=== PATIENT | male | born 1955 | race Caucasian/White ===

== ENCOUNTER 2019-09-02 10:08 | Outpatient (CLI) | payer MEDICARE, OTHER ==
[2019-09-02 12:26] LABS: BASOPHILS % (AUTO) 0.6 %; EOSINOPHILS # (AUTO) 0.2 10^3/uL (0.0-0.7); EOSINOPHILS % (AUTO) 3.6 %; HGB - HEMOGLOBIN 13.6 g/dL (14.0-18.0); LYMPHOCYTES # (AUTO) 1.5 10^3/uL (1.5-3.5); LYMPHOCYTES % (AUTO) 22.1 %; MEAN CORPUSCULAR HGB CONC 30.7 g/dL (32.0-36.0); MEAN CORPUSCULAR VOLUME 91.3 fL (80.0-94.0); MONOCYTES # (AUTO) 0.7 10^3/uL (0.0-1.0); MONOCYTES % (AUTO) 9.6 %; NEUTROPHILS # (AUTO) 4.3 10^3/uL (1.5-6.6); NEUTROPHILS % (AUTO) 63.7 %; PLT - PLATELET COUNT 273 10^3/uL (130-450); RED BLOOD COUNT 4.85 10^6/uL (4.70-6.10); RED CELL DISTRIBUTION WIDTH 14.1 % (12.0-15.0); WHITE BLOOD COUNT 6.8 x10^3/uL (4.8-10.8)
[2019-09-02 13:12] LABS: ALBUMIN 4.9 g/dL (3.2-5.5); ALBUMIN/GLOBULIN RATIO 1.8 (1.0-2.2); ALKALINE PHOSPHATASE 63 IU/L (42-121); ALT ALANINE AMINOTRANSFERASE 28 IU/L (10-60); AST ASPARTATE AMINOTRANSFERASE 28 IU/L (10-42); BILIRUBIN,TOTAL 0.7 mg/dL (0.2-1.0); BUN - BLOOD UREA NITROGEN 10 mg/dL (6-20); CALCIUM 9.8 mg/dL (8.5-10.3); CARBON DIOXIDE - CO2 30 mmol/L (21-32); CHLORIDE 103 mmol/L (101-111); CHOL/HDL RATIO 3.8 (<5.0); CHOLESTEROL 185 mg/dL; CREATININE 0.8 mg/dL (0.6-1.2); GFR - MDRD 97 (>89); GLUCOSE 117 mg/dL (70-100); HDL CHOLESTEROL 49 mg/dL; LDL CHOLESTEROL,CALCULATED 117 mg/dL; LDL/HDL RATIO 2.4 (<3.6); SODIUM 142 mmol/L (135-145); TOTAL PROTEIN 7.7 g/dL (6.7-8.2); VLDL CHOLESTEROL 19 mg/dL
== END 2019-09-02 23:59 | disposition home or self-care (01) ==
LOC: LAB.WCP 10:08
PROVIDERS: ATTEND Physician Assistant
DX: I10 Essential (primary) hypertension (principal); E78.5 Hyperlipidemia, unspecified; M10.9 Gout, unspecified
CPT/HCPCS: 36415; 80053; 80061; 83721; 84550; 85025

== ENCOUNTER 2020-07-15 11:33 | Outpatient (CLI) | payer MEDICARE, OTHER ==
--- NOTE | 2020-07-15 12:31 | XRAY Report ---
PROCEDURE: Knee 2 View LT INDICATIONS: ARTHRITIS,LT KNEE TECHNIQUE: 2 views of the knee(s) were acquired. COMPARISON: None. FINDINGS: Bones: No fractures or dislocations. No suspicious bony lesions. Moderate tricompartmental knee bulmaro int osteoarthritis is present at the lateral compartment and patellofemoral joint but moderately shahzad re such degeneration is seen at the medial compartment. Soft tissues: No joint effusion. No suspicious soft tissue calcifications. IMPRESSION: Tricompartmental degenerative knee joint osteoarthritis most pronounced at the medial co mpartment without effusion or loose body, or trauma found. Reviewed by: Sanjay Segal MD on 07/15/2020 12:30 PM PDT Approved by: Sanjay Segal MD on 07/15/2020 12:30 PM PDT Station ID: [id number]
== END 2020-07-15 11:34 | disposition home or self-care (01) ==
LOC: DI 11:33
PROVIDERS: ATTEND Physician Assistant
DX: M17.12 Unilateral primary osteoarthritis, left knee (principal)

== ENCOUNTER 2020-12-25 08:00 | Outpatient (CLI) | payer MEDICARE, OTHER ==
[2020-12-25 11:46] LABS: BASOPHILS % (AUTO) 0.5 %; EOSINOPHILS # (AUTO) 0.2 10^3/uL (0.0-0.7); EOSINOPHILS % (AUTO) 2.1 %; HGB - HEMOGLOBIN 13.6 g/dL (14.0-18.0); LYMPHOCYTES # (AUTO) 1.7 10^3/uL (1.5-3.5); LYMPHOCYTES % (AUTO) 23.2 %; MEAN CORPUSCULAR HEMOGLOBIN 29.3 pg (27.0-31.0); MEAN CORPUSCULAR HGB CONC 31.6 g/dL (32.0-36.0); MEAN CORPUSCULAR VOLUME 92.7 fL (80.0-94.0); MEAN PLATELET VOLUME 10.8 fL (7.4-11.4); MONOCYTES # (AUTO) 0.8 10^3/uL (0.0-1.0); MONOCYTES % (AUTO) 10.9 %; NEUTROPHILS # (AUTO) 4.7 10^3/uL (1.5-6.6); PLT - PLATELET COUNT 270 10^3/uL (130-450); RED BLOOD COUNT 4.64 10^6/uL (4.70-6.10); RED CELL DISTRIBUTION WIDTH 13.5 % (12.0-15.0); WHITE BLOOD COUNT 7.5 x10^3/uL (4.8-10.8)
[2020-12-25 12:35] LABS: ALBUMIN 4.6 g/dL (3.2-5.5); ALBUMIN/GLOBULIN RATIO 1.8 (1.0-2.2); ALKALINE PHOSPHATASE 68 IU/L (42-121); ALT ALANINE AMINOTRANSFERASE 29 IU/L (10-60); AST ASPARTATE AMINOTRANSFERASE 33 IU/L (10-42); BUN - BLOOD UREA NITROGEN 14 mg/dL (6-20); CALCIUM 9.8 mg/dL (8.5-10.3); CARBON DIOXIDE - CO2 28 mmol/L (21-32); CHLORIDE 100 mmol/L (101-111); CHOL/HDL RATIO 3.9 (<5.0); CHOLESTEROL 165 mg/dL; CREATININE 0.8 mg/dL (0.6-1.2); GLUCOSE 102 mg/dL (70-100); HDL CHOLESTEROL 42 mg/dL; LDL CHOLESTEROL,CALCULATED 96 mg/dL; LDL/HDL RATIO 2.3 (<3.6); TOTAL PROTEIN 7.2 g/dL (6.7-8.2); URIC ACID 3.5 mg/dL (2.6-7.2); VLDL CHOLESTEROL 27 mg/dL
== END 2020-12-25 23:59 | disposition home or self-care (01) ==
LOC: LAB.WCP 08:00
PROVIDERS: ATTEND Physician Assistant Medical
DX: E78.5 Hyperlipidemia, unspecified (principal); Z12.5 Encounter for screening for malignant neoplasm of prostate; M10.9 Gout, unspecified
CPT/HCPCS: 36415; 80053; 80061; 84550; 85025; G0103; 83721; 84153

== ENCOUNTER 2021-08-03 08:28 | Outpatient (CLI) | payer MEDICARE, OTHER ==
[2021-08-03 12:15] LABS: BASOPHILS % (AUTO) 0.5 %; EOSINOPHILS # (AUTO) 0.2 10^3/uL (0.0-0.7); HCT - HEMATOCRIT 45.5 % (42.0-52.0); HGB - HEMOGLOBIN 14.5 g/dL (14.0-18.0); LYMPHOCYTES # (AUTO) 1.6 10^3/uL (1.5-3.5); LYMPHOCYTES % (AUTO) 24.5 %; MEAN CORPUSCULAR HEMOGLOBIN 30.6 pg (27.0-31.0); MEAN CORPUSCULAR HGB CONC 31.9 g/dL (32.0-36.0); MEAN PLATELET VOLUME 11.1 fL (7.4-11.4); MONOCYTES # (AUTO) 0.6 10^3/uL (0.0-1.0); MONOCYTES % (AUTO) 9.3 %; NEUTROPHILS % (AUTO) 62.4 %; PLT - PLATELET COUNT 282 10^3/uL (130-450); RED BLOOD COUNT 4.74 10^6/uL (4.70-6.10); RED CELL DISTRIBUTION WIDTH 13.7 % (12.0-15.0); WHITE BLOOD COUNT 6.4 x10^3/uL (4.8-10.8)
[2021-08-03 12:57] LABS: ALBUMIN 4.9 g/dL (3.2-5.5); ALBUMIN/GLOBULIN RATIO 1.7 (1.0-2.2); ALKALINE PHOSPHATASE 59 IU/L (42-121); ALT ALANINE AMINOTRANSFERASE 34 IU/L (10-60); AST ASPARTATE AMINOTRANSFERASE 31 IU/L (10-42); BILIRUBIN,TOTAL 0.9 mg/dL (0.2-1.0); BUN - BLOOD UREA NITROGEN 15 mg/dL (6-20); CALCIUM 9.9 mg/dL (8.5-10.3); CARBON DIOXIDE - CO2 28 mmol/L (21-32); CHLORIDE 106 mmol/L (101-111); CHOL/HDL RATIO 3.8 (<5.0); CHOLESTEROL 168 mg/dL; CREATININE 0.7 mg/dL (0.6-1.2); GFR - MDRD 112 (>89); GLUCOSE 102 mg/dL (70-100); HDL CHOLESTEROL 44 mg/dL; LDL CHOLESTEROL,CALCULATED 109 mg/dL; LDL/HDL RATIO 2.5 (<3.6); POTASSIUM 4.4 mmol/L (3.5-5.0); SODIUM 144 mmol/L (135-145); TOTAL PROTEIN 7.8 g/dL (6.7-8.2); TRIGLYCERIDES 76 mg/dL; URIC ACID 4.6 mg/dL (2.6-7.2); VLDL CHOLESTEROL 15 mg/dL
== END 2021-08-03 23:59 | disposition home or self-care (01) ==
LOC: LAB.WCP 08:28
PROVIDERS: ATTEND Physician Assistant Medical
DX: E78.5 Hyperlipidemia, unspecified (principal); M10.9 Gout, unspecified; I10 Essential (primary) hypertension
CPT/HCPCS: 36415; 80053; 80061; 83721; 84550; 85025

== ENCOUNTER 2022-02-14 17:11 | Outpatient (CLI) | payer MEDICARE, OTHER ==
--- NOTE | 2022-02-15 12:03 | Ultrasound Report ---
PROCEDURE: Testicle INDICATIONS: RIGHT TESTICULAR PAIN TECHNIQUE: Real-time scanning was performed of the scrotum and testicles, with image documentation. Color and p ulse Doppler interrogation was performed of both testicles. COMPARISON: None. FINDINGS: Right: Testicle is normal in size at 2.5 x 3.4 x 4.3 cm, and homogenous in echotexture. Epididymis is normal in overall size and morphology. No hydrocele or varicoceles. Overlying scrotal skin is no rmal in thickness. Left: Testicle is normal in size at 2.6 x 2.7 x 4.5 cm, and homogeneous in echotexture. Epididymis is normal in overall size and morphology. No hydrocele. Small left varicocele. Overlying scrotal skin is normal in thickness. Doppler: Color and pulse Doppler demonstrate normal and symmetric arterial flow in both testicles. Miscellaneous: Incidental fat-containing reducible right inguinal hernia with fascial defect measurin g 1.4 cm. IMPRESSION: No testicular mass, hydrocele, or varicocele on the right. Small fat-containing right inguinal hernia. Mild left varicocele. Reviewed by: Dipesh Hernández MD on 02/15/2022 12:02 PM PDT Approved by: Dipesh Hernández MD on 02/15/2022 12:02 PM PDT Station ID: [id number]
== END 2022-02-14 17:12 | disposition home or self-care (01) ==
LOC: DI 17:11
PROVIDERS: ATTEND Physician Assistant Medical
DX: I86.1 Scrotal varices (principal); K40.90 Unilateral inguinal hernia, without obstruction or gangrene, not specified as recurrent

== ENCOUNTER 2022-02-25 08:00 | Outpatient (CLI) | payer MEDICARE, OTHER | END 2022-02-25 23:59 | disposition home or self-care (01) | LOC: LAB.N 08:00 | PROVIDERS: ATTEND Physician Assistant | DX: J06.9 Acute upper respiratory infection, unspecified (principal); Z20.822 Contact with and (suspected) exposure to COVID-19 ==

== ENCOUNTER 2022-08-08 07:33 | Outpatient (CLI) | payer MEDICARE, OTHER ==
[2022-08-08 12:54] LABS: BASOPHILS % (AUTO) 0.4 %; EOSINOPHILS # (AUTO) 0.2 10^3/uL (0.0-0.7); EOSINOPHILS % (AUTO) 2.2 %; HGB - HEMOGLOBIN 14.6 g/dL (14.0-18.0); LYMPHOCYTES # (AUTO) 1.7 10^3/uL (1.5-3.5); LYMPHOCYTES % (AUTO) 23.7 %; MEAN CORPUSCULAR HEMOGLOBIN 30.9 pg (27.0-31.0); MEAN CORPUSCULAR HGB CONC 33.2 g/dL (32.0-36.0); MEAN PLATELET VOLUME 11.3 fL (7.4-11.4); MONOCYTES # (AUTO) 0.8 10^3/uL (0.0-1.0); MONOCYTES % (AUTO) 10.5 %; NEUTROPHILS # (AUTO) 4.6 10^3/uL (1.5-6.6); NEUTROPHILS % (AUTO) 62.9 %; PLT - PLATELET COUNT 248 10^3/uL (130-450); RED BLOOD COUNT 4.73 10^6/uL (4.70-6.10); RED CELL DISTRIBUTION WIDTH 13.4 % (12.0-15.0); WHITE BLOOD COUNT 7.3 x10^3/uL (4.8-10.8)
[2022-08-08 13:12] LABS: ALBUMIN 4.6 g/dL (3.2-5.5); ALBUMIN/GLOBULIN RATIO 1.5 (1.0-2.2); ALKALINE PHOSPHATASE 51 IU/L (42-121); ALT ALANINE AMINOTRANSFERASE 42 IU/L (10-60); AST ASPARTATE AMINOTRANSFERASE 33 IU/L (10-42); BUN - BLOOD UREA NITROGEN 16 mg/dL (6-20); CALCIUM 9.6 mg/dL (8.5-10.3); CARBON DIOXIDE - CO2 28 mmol/L (21-32); CHLORIDE 104 mmol/L (101-111); CHOL/HDL RATIO 3.9 (<5.0); CHOLESTEROL 161 mg/dL; CREATININE 0.8 mg/dL (0.6-1.2); GFR - MDRD 96 (>89); GLUCOSE 109 mg/dL (70-100); HDL CHOLESTEROL 41 mg/dL; LDL CHOLESTEROL,CALCULATED 110 mg/dL; LDL/HDL RATIO 2.7 (<3.6); POTASSIUM 4.2 mmol/L (3.5-5.0); SODIUM 139 mmol/L (135-145); TOTAL PROTEIN 7.6 g/dL (6.7-8.2); TRIGLYCERIDES 51 mg/dL; VLDL CHOLESTEROL 10 mg/dL
[2022-08-08 13:17] LABS: THYROID STIMULATING HORMONE 2.18 uIU/mL (0.34-5.60)
== END 2022-08-08 07:34 | disposition home or self-care (01) ==
LOC: LAB.N 07:33
PROVIDERS: ATTEND Physician Assistant Medical
DX: I10 Essential (primary) hypertension (principal); E78.5 Hyperlipidemia, unspecified; Z12.5 Encounter for screening for malignant neoplasm of prostate; Z79.899 Other long term (current) drug therapy
CPT/HCPCS: 36415; 80053; 80061; 84443; 85025; G0103; 83721; 84153

== ENCOUNTER 2023-06-05 08:13 | Outpatient (CLI) | payer MEDICARE, OTHER ==
[2023-06-05 13:43] LABS: CALCIUM 9.5 mg/dL (8.5-10.3); CREATININE 0.8 mg/dL (0.6-1.2); POTASSIUM 4.5 mmol/L (3.5-5.0)
[2023-06-05 13:57] LABS: ESTIMATED AVERAGE GLUCOSE 120 mg/dL (70-100); HEMOGLOBIN A1c% 5.8 % (4.27-6.07)
== END 2023-06-05 08:14 | disposition home or self-care (01) ==
LOC: LAB.N 08:13
PROVIDERS: ATTEND Physician Assistant Medical
DX: I10 Essential (primary) hypertension (principal); R73.9 Hyperglycemia, unspecified
CPT/HCPCS: 36415; 80048; 83036

== ENCOUNTER 2023-08-01 07:42 | Outpatient (CLI) | payer MEDICARE, OTHER ==
[2023-08-01 12:07] LABS: BASOPHILS % (AUTO) 0.3 %; EOSINOPHILS # (AUTO) 0.3 10^3/uL (0.0-0.7); HCT - HEMATOCRIT 45.1 % (42.0-52.0); LYMPHOCYTES # (AUTO) 1.8 10^3/uL (1.5-3.5); MEAN CORPUSCULAR HEMOGLOBIN 30.9 pg (27.0-31.0); MEAN CORPUSCULAR HGB CONC 33.3 g/dL (32.0-36.0); MEAN CORPUSCULAR VOLUME 92.8 fL (80.0-94.0); MEAN PLATELET VOLUME 10.9 fL (7.4-11.4); MONOCYTES # (AUTO) 0.8 10^3/uL (0.0-1.0); MONOCYTES % (AUTO) 9.1 %; NEUTROPHILS % (AUTO) 67.2 %; PLT - PLATELET COUNT 269 10^3/uL (130-450); RED BLOOD COUNT 4.86 10^6/uL (4.70-6.10); RED CELL DISTRIBUTION WIDTH 13.3 % (12.0-15.0); WHITE BLOOD COUNT 8.9 x10^3/uL (4.8-10.8)
[2023-08-01 13:04] LABS: ALBUMIN 4.6 g/dL (3.2-5.5); ALBUMIN/GLOBULIN RATIO 1.8 (1.0-2.2); ALKALINE PHOSPHATASE 52 IU/L (42-121); ALT ALANINE AMINOTRANSFERASE 42 IU/L (10-60); AST ASPARTATE AMINOTRANSFERASE 30 IU/L (10-42); BILIRUBIN,TOTAL 0.8 mg/dL (0.2-1.0); BUN - BLOOD UREA NITROGEN 12 mg/dL (6-20); CARBON DIOXIDE - CO2 31 mmol/L (21-32); CHLORIDE 103 mmol/L (101-111); CHOL/HDL RATIO 3.7 (<5.0); CHOLESTEROL 163 mg/dL; CREATININE 0.8 mg/dL (0.6-1.3); GFR - MDRD 96 (>89); GLUCOSE 105 mg/dL (74-104); HDL CHOLESTEROL 44 mg/dL; LDL CHOLESTEROL,CALCULATED 98 mg/dL; LDL/HDL RATIO 2.2 (<3.6); POTASSIUM 3.8 mmol/L (3.5-4.5); SODIUM 139 mmol/L (135-145); TOTAL PROTEIN 7.1 g/dL (6.4-8.9); TRIGLYCERIDES 104 mg/dL (48-352); URIC ACID 4.2 mg/dL (4.4-7.6); VLDL CHOLESTEROL 21 mg/dL
== END 2023-08-01 07:43 | disposition home or self-care (01) ==
LOC: LAB.N 07:42
PROVIDERS: ATTEND Physician Assistant Medical
DX: E78.5 Hyperlipidemia, unspecified (principal); Z12.5 Encounter for screening for malignant neoplasm of prostate; M10.9 Gout, unspecified
CPT/HCPCS: 36415; 80053; 80061; 84550; 85025; G0103; 83721; 84153

== ENCOUNTER 2023-10-06 08:27 | Day surgery (SDC) | payer MEDICARE, OTHER ==
[2023-10-06] MEDS ORDERED: LACTATED RINGERS 1,000 ML IV ONE ×2 (08:55→11:02)
--- NOTE | 2023-10-06 09:00 | ANESTHESIA ---
Pre-Anesthesia VS, & Labs - Diagnosis screening - Procedure colonoscopy Vital Signs: Temp Pulse Resp BP Pulse Ox O2 Flow Rate 36.6 C 69 16 157/100 H 97 10/06/23 08:51 10/06/23 08:51 10/06/23 08:51 10/06/23 08:51 10/06/23 08:51 Height: 5 ft 11 in Weight (kg): 95.7 kg Body Mass Index: 29.4 BMI Classification: Overweight - NPO >8 hours - Lab Results Lab results reviewed: Yes Home Medications and Allergies Home Medications: Ambulatory Orders allopurinoL [Allopurinol] 300 mg PO DAILY 10/06/23 allopurinoL [Allopurinol] 300 mg PO DAILY 10/06/23 Allergies/Adverse Reactions: Allergies Allergy/AdvReac Type Severity Reaction Status Date / Time No Known Drug Allergies Allergy Verified 08/15/23 09:19 Anes History & Medical History - Anesthetic History Anesthesia Complications: reports: No previous complications - Medical History Cardiovascular: reports: Hypertension, High cholesterol Pulmonary: reports: None Gastrointestinal: reports: None Urinary: reports: None Musculoskeletal: reports: Osteoarthritis, Gout Endocrine/Autoimmune: reports: None Skin: reports: None Smoking Status: Never smoker Psychosocial: reports: Alcohol - Surgical History General: reports: Colonoscopy Urologic: reports: Testicular surgery Orthopedic: reports: Knee replacement Exam General: Alert, Oriented x3, Cooperative Dental: WNL Mouth Openin Fingerbreadth Neck Mobility: Normal Mallampati classification: II Thyromental Distance: 4-6 cm Respiratory: Lungs clear Cardiovascular: Regular rate Plan Anesthesia Type: Total IV Consent for Procedure(s) Verified and Reviewed: Yes Code Status: Attempt Resuscitation ASA classification: 2-Mild systemic disease Is this case an emergency?: No
[2023-10-06] MEDS ORDERED: PROPOFOL 500 MG/50 ML 500 MG/50 ML VIAL ONE (10:51)
[2023-10-06] MEDS ORDERED: GLYCOPYRROLATE 1 MG/5 ML VIAL ONE (10:55)
[2023-10-06 11:33] VITALS: BP 119/74; O2SAT 99
--- NOTE | 2023-10-06 13:56 | ANESTHESIA POST OP EVALUATION ---
Anesthesia Post Eval - Post Anesthesia Eval Vitals: Last Vital Signs Temp 36.5 C 10/06/23 11:02 Pulse 70 10/06/23 11:28 Resp 16 10/06/23 11:28 BP 119/74 10/06/23 11:28 Pulse Ox 99 10/06/23 11:28 O2 Flow Rate CV Function Including HR & BP: Stable Pain Control: Satisfactory Nausea & Vomiting: Negative Mental Status: Baseline Respiratory Status: Airway Patent Hydration Status: Satisfactory Anesthesia Complications: None
== END 2023-10-06 08:28 | disposition home or self-care (01) ==
LOC: SDS 08:27
PROVIDERS: ATTEND Surgery
PROC: 0DBK8ZZ Excision of Ascending Colon, Via Natural or Artificial Opening Endoscopic (ICD-10-PCS; principal; 2023-10-06 09:45)
DX: Z12.11 Encounter for screening for malignant neoplasm of colon (principal); D12.2 Benign neoplasm of ascending colon; K57.30 Diverticulosis of large intestine without perforation or abscess without bleeding
CPT/HCPCS: 45380; J7120

== ENCOUNTER 2024-02-20 15:47 | Outpatient (CLI) | payer MEDICARE, OTHER ==
--- NOTE | 2024-02-21 10:13 | MRI Report ---
PROCEDURE: Shoulder RT WO INDICATIONS: R ROTATOR CUFF SYN TECHNIQUE: Noncontrast oblique coronal T2 fast spin echo with fat saturation, oblique sagittal T1 spin echo and T2 fast spin echo with fat saturation, axial T1 spin echo and T2 fast spin echo with fat saturation t hrough the shoulder. COMPARISON: X-ray right shoulder, 08/15/2023. FINDINGS: Image quality: Excellent. Rotator cuff: There is full-thickness tear of the subscapularis tendon. There is tendon retraction. Mild subscapularis muscle atrophy. There is severe supraspinatus tendinosis from the musculotendinous junction to the footprint. There i s at least high-grade partial-thickness tear of the anterior fibers of the supraspinatus tendon. There is moderate tendinosis of the infraspinatus tendon with low-grade partial-thickness tear. Bones and bursae: No bone marrow contusions or fractures. Moderate acromioclavicular and glenohumera l joint degeneration. The acromion demonstrates conventional anatomy, without an os acromiale. Moder ate to large glenohumeral joint effusion. Capsule and soft tissues: There is degenerative tear of the anterior inferior labrum. There is mild more diffuse degenerative labral fraying. The glenohumeral ligaments appear intact. Severe tendinosis of the intra-articular segment of the long head of the biceps tendon, most pronounc ed in the intra-articular segment. The rotator interval appears irregular with fibrosis. The coracohumeral ligament is thickened. IMPRESSION: 1. Full-thickness tear of the subscapularis tendon with tendon retraction and mild muscle atrophy. 2. At least high-grade partial-thickness tear of the anterior fibers of the supraspinatus tendon with severe tendinosis from the musculotendinous junction to the footprint. 3. Moderate infraspinatus tendinosis with low-grade partial-thickness tear. 4. Severe tendinosis of the long head of the biceps. 5. Degenerative tear of the anterior inferior labrum. 6. Moderate acromioclavicular and glenohumeral arthrosis. 7. [id number] glenohumeral joint effusion. Reviewed by: Leobardo Segal MD on 02/21/2024 10:12 AM PDT Approved by: Leobardo Segal MD on 02/21/2024 10:12 AM PDT Station ID: [id number]
== END 2024-02-20 15:48 | disposition home or self-care (01) ==
LOC: DI 15:47
PROVIDERS: ATTEND Physician Assistant Surgical
DX: M75.121 Complete rotator cuff tear or rupture of right shoulder, not specified as traumatic (principal); M62.511 Muscle wasting and atrophy, not elsewhere classified, right shoulder; M67.813 Other specified disorders of tendon, right shoulder; S43.491A Other sprain of right shoulder joint, initial encounter; M19.011 Primary osteoarthritis, right shoulder; M25.411 Effusion, right shoulder

== ENCOUNTER 2024-03-27 09:30 | Day surgery (SDC) | payer MEDICARE, OTHER ==
[~2024-03-27 09:30] MED LIST: EPINEPHrine 1 MG/ML AMP ONE; ceFAZolin 2 GM VIAL ONE
[2024-03-27] MEDS: LACTATED RINGERS 1,000 ML IV ONE ×2 (09:40→16:11)
[2024-03-27] MEDS: ACETAMINOPHEN 500 MG TABLET PO ONE (09:50)
[2024-03-27] MEDS: CELECOXIB 100 MG CAPSULE PO ONE (09:50)
[2024-03-27] MEDS ORDERED: BUPIVACAINE 0.5%-EPI 1:200000 PF 30 ML VIAL ONE (10:12)
[2024-03-27] MEDS ORDERED: BUPIVACAINE 0.5% PF 10 ML VIAL ONE (10:14)
[2024-03-27] MEDS ORDERED: fentaNYL 100 MCG/2 ML VIAL ONE ×2 (10:16→12:27)
[2024-03-27] MEDS ORDERED: PROPOFOL 200 MG/20 ML VIAL IVP ONE (10:16)
[2024-03-27] MEDS ORDERED: MIDAZOLAM 2 MG/2 ML VIAL ONE (10:16)
[2024-03-27] MEDS ORDERED: LIDOCAINE-PF 2% 10 ML AMP SUBQ ONE (10:16)
[2024-03-27] MEDS ORDERED: ROPIVACAINE 0.5% PF 20 ML VIAL ONE (10:17)
--- NOTE | 2024-03-27 10:19 | ANESTHESIA ---
Pre-Anesthesia VS, & Labs - Diagnosis right rotator cuff tear - Procedure Arthroscopy right shoulder with repair of rotator cuff/biceps Vital Signs: Temp Pulse Resp BP Pulse Ox O2 Flow Rate 36.7 C 63 18 146/94 H 97 03/27/24 09:48 03/27/24 09:48 03/27/24 09:48 03/27/24 09:48 03/27/24 09:48 Height: 5 ft 10 in Weight (kg): 95.9 kg Body Mass Index: 30.3 BMI Classification: Obese - NPO >8 hours Home Medications and Allergies Home Medications: Ambulatory Orders Sildenafil Citrate 50 mg PO ONCE PRN 03/22/24 Losartan Potassium 100 mg PO DAILY 10/06/23 Pravastatin [Pravachol] 80 mg PO DAILY 10/06/23 allopurinoL [Allopurinol] 300 mg PO DAILY 10/06/23 amLODIPine [Norvasc] 5 mg PO DAILY 10/06/23 Sildenafil Citrate 50 mg PO ONCE PRN 03/22/24 Allergies/Adverse Reactions: Allergies Allergy/AdvReac Type Severity Reaction Status Date / Time No Known Drug Allergies Allergy Verified 08/15/23 09:19 Anes History & Medical History - Anesthetic History Anesthesia Complications: reports: No previous complications - Medical History Cardiovascular: reports: Hypertension, High cholesterol Pulmonary: reports: None Gastrointestinal: reports: None Urinary: reports: None Neuro: reports: None Musculoskeletal: reports: Osteoarthritis, Gout Endocrine/Autoimmune: reports: None Skin: reports: Other Smoking Status: Never smoker Psychosocial: reports: No issues indicated History of Cancer?: No - Surgical History General: reports: Colonoscopy Urologic: reports: Testicular surgery Orthopedic: reports: Knee replacement Dermatologic: reports: Skin cancer surgery Exam General: Alert, Oriented x3, Cooperative, No acute distress Dental: WNL Mouth Openin Fingerbreadth Neck Mobility: Normal Mallampati classification: II Thyromental Distance: 4-6 cm Mental/Cognitive Status: Alert/Oriented X3, Normal for patient Plan Anesthesia Type: General, Interscalene Block (right) Consent for Procedure(s) Verified and Reviewed: Yes Code Status: Attempt Resuscitation ASA classification: 2-Mild systemic disease Is this case an emergency?: No
[2024-03-27] MEDS ORDERED: ROCURONIUM 50 MG/5 ML VIAL ONE (10:22)
[2024-03-27] MEDS ORDERED: MORPHINE 2 MG/ML CARPUJECT IVP PRN (10:37)
[2024-03-27] MEDS ORDERED: fentaNYL 100 MCG/2 ML VIAL IVP PRN (10:37)
[2024-03-27] MEDS ORDERED: ATROPINE ABBOJECT 1 MG/10 ML SYRINGE IVP PRN (10:37)
[2024-03-27] MEDS ORDERED: HYDROmorphone 0.5 MG/0.5 ML SYRINGE IVP PRN (10:37)
[2024-03-27] MEDS ORDERED: NALOXONE 0.4 MG/ML VIAL IVP PRN (10:37)
[2024-03-27] MEDS ORDERED: ONDANSETRON 4 MG/2 ML VIAL IVP PRN ×2 (10:37→16:10)
[2024-03-27] MEDS: EPINEPHrine 1 MG/ML AMP IR ONE (10:42)
[2024-03-27] MEDS ORDERED: SODIUM CHLORIDE 0.9% 10 ML VIAL IVP ONE ×3 (10:54→14:34)
[2024-03-27] MEDS ORDERED: PHENYLEPHRINE HCL 0.5 MG/5 ML AMPULE ONE ×2 (10:54→11:32)
[2024-03-27] MEDS ORDERED: ePHEDrine 50 MG/ML VIAL IVP ONE ×2 (10:54→14:34)
[2024-03-27] MEDS ORDERED: LACTATED RINGERS 1,000 ML IV SCH (11:00)
[2024-03-27] MEDS ORDERED: GLYCOPYRROLATE 1 MG/5 ML VIAL ONE (11:20)
[2024-03-27] MEDS ORDERED: ONDANSETRON 4 MG/2 ML VIAL ONE (11:34)
[2024-03-27] MEDS ORDERED: HYDROmorphone 1 MG/ML CARPUJECT ONE (13:48)
[2024-03-27] MEDS ORDERED: ceFAZolin 1 GM VIAL ONE (14:23)
[2024-03-27] MEDS ORDERED: SEVOFLURANE 250 ML LIQUID INH ONE (15:22)
[2024-03-27] MEDS ORDERED: VANCOMYCIN 1 GM VIAL ONE (15:36)
--- NOTE | 2024-03-27 15:56 | OPERATIVE REPORT ---
Operative Report - General Procedure Date: 03/27/24 Planned Procedure: Rotator cuff repair and biceps tenodesis right shoulder with arthroscopy Pre-Op Diagnosis: Rotator cuff tear and biceps tendinosis right shoulder Procedure Performed: Arthroscopy right shoulder, arthroscopic biceps tenodesis and mini open repair rotator cuff right shoulder Post Op Diagnosis: Same as preoperative diagnosis - Procedure Note Primary Surgeon: Kristofer Bejarano MD Secondary Surgeon: Ashley DAVIS Anesthesia Provider: Macho Irene CRNA Anesthesia Technique: General ET tube, Regional block Indications: This is a 69-year-old gentleman who has been very active throughout his life physically. 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 He enjoys kayaking and other physical activities with his arms.. His dominant arm is his right. He is very tender over the greater tuberosity and biceps tendon preoperatively but had good motion and at least grade 4/5 strength. Routine radiographs are normal but his MRI scan of the right shoulder suggest the full-thickness rotator cuff tear and biceps tendinosis. He signed informed consent for arthroscopy, right shoulder rotator cuff repair with possible biceps tenodesis Findings: He had marked tendinosis and fraying of the biceps tendon with partial tear. The biceps labrum was torn, type I tear with fraying and degeneration. The rotator cuff tear had a full-thickness tear involving the supraspinatus. There was some tendinosis of the infraspinatus. There was a lot of inflammatory tissue about the rotator cuff tear and biceps tendon but no sign of infection. The articular surfaces of the humeral head and glenoid appeared normal. The subscapularis showed some fraying but was still intact Complications: None - Other Other Information/Narrative: The patient was brought to the operating room. The patient was placed initially in a supine position. He had received a shoulder block and given a general endotracheal anesthetic. He was placed in a beachchair positioner, semisitting position. A trimano arm love was used made by [employer] and padded. The head and neck were placed in neutral extension. The right shoulder and upper extremity were prepped and draped in a sterile manner in the usual fashion.A timeout procedure was performed by the entire operating room team and all were in agreement. The bony landmarks of the right shoulder were outlined with a sterile marking pen arthroscopy of the right shoulder was performed using the [employer] 4 mm 30 degree oblique diagnostic arthroscope in conjunction with [employer] videocamera. Inflow was brought through the arthroscope using the [employer] arthroscopic pump Complete diagnostic arthroscopy was performed. An anterior portal was made in the safe triangle below the biceps and just above the subscapularis. The biceps tendon was markedly frayed and had a sign of partial tear of at least 30 to 40%. The superior labrum was intact but markedly frayed. The rest of the glenoid labrum was intact circumferentially. The radiofrequency probe was used to ablate the inflammatory tissue surrounding the biceps tendon tear. A biceps tenodesis was next performed using a loop and tack technique, [employer]. #2 fiber tape was passed around the biceps tendon to form a loop and then pierced with a scorpion below the loop to provide a loop and tack fixation. The biceps was then released proximally near the glenoid labrum with the radiofrequency probe. A bone awl was used to make a hole just above the subscapularis into the humeral head. The suture from the biceps was then taken through the swivel lock 4.75 and impacted into the previously made hole. The anchor was deployed and provided good fixation to the biceps tenodesis. Next the subacromial space was entered with the arthroscope, again using a posterior portal. Subacromial bursal resection was performed to help expose the rotator cuff tear which was in the supraspinatus. The arthroscope was then switched to the posterolateral portal for better visualization of the rotator cuff. The lateral subacromial portal was utilized for passing suture using a large cannula. The cuff was gently debrided. There was some retraction of the tendon but mild. Technical difficulty was encountered with the scorpion trying to pass suture through the rotator cuff. His tissue was thick and was difficult to pass suture despite several attempts. For this reason a mini open incision was made through the lateral subacromial portal and 6 strands of #2 fiber tape were passed through the rotator cuff with a curved needle. 4 strands were taken through a 4.75 swivel lock made by [employer] and impacted into bone. 2 additional strands were taken through a second 4.75 swivel lock. In addition the end of the biceps tendon was used to cover the rotator cuff to provide additional soft tissue fixation. This was achieved with #2 fiber tape as well. A solid repair seem to been obtained and gentle range of motion showed no motion to the repair site of the rotator cuff or biceps tendon.The rotator cuff and subacromial area was thoroughly irrigated with Irrisept. The deltoid split in the lateral subacromial portal was closed with 2 O strata fix suture. The rest of the lateral subacromial mini open incision was closed with 3 O strata fix suture. The arthroscopic incision sites were closed with 4-0 nylon. He received 2 g of Ancef before the incision and 2 g of Ancef during the procedure. He tolerated the procedure well. Dry sterile dressings were applied to the shoulder with a arm abduction sling. A physician customer relations assistant was medically necessary to help with prepping and draping, positioning, protection of vital structures, assistance during the procedure including wound closure, dressing and/or splinting.
[2024-03-27] MEDS ORDERED: oxyCODONE 5 MG TABLET PO PRN (16:10)
[2024-03-27] MEDS ORDERED: ACETAMINOPHEN 500 MG TABLET PO PRN (16:10)
--- NOTE | 2024-03-27 16:22 | PHARMACY PROGRESS NOTE ---
- Best Possible Medication History Admit Date and Time: Processed by: Nursing Medications reviewed in ED?: No Medication History completed: Yes Patient Interview: Completed Secondary Source(s): Insurance records As the person ultimately responsible for medication therapy, providers are able to order a medication from an existing home medication list in [facility] via the "Reconcile Routine" prior to Confirmation of that medication by manager decision support. Such practice is discouraged except when the physician, in their clinical judgment, deems that a medical need exists for a medication without regard to previous use.
--- NOTE | 2024-03-27 17:04 | ANESTHESIA POST OP EVALUATION ---
Anesthesia Post Eval - Post Anesthesia Eval Vitals: Last Vital Signs Temp 36.6 C 03/27/24 17:00 Pulse 82 03/27/24 17:00 Resp 13 03/27/24 17:00 BP 127/85 H 03/27/24 17:00 Pulse Ox 96 03/27/24 17:00 O2 Flow Rate CV Function Including HR & BP: Stable Pain Control: Satisfactory Nausea & Vomiting: Negative Mental Status: Baseline Respiratory Status: Airway Patent Hydration Status: Satisfactory Anesthesia Complications: None
[2024-03-27 18:18] VITALS: BP 146/81; O2SAT 94
== END 2024-03-27 19:51 | disposition home or self-care (01) ==
LOC: SDS 09:30 → MS2 15:50 → SDS 19:51
PROVIDERS: ATTEND Orthopaedic Surgery
DX: M75.121 Complete rotator cuff tear or rupture of right shoulder, not specified as traumatic (principal); S46.211A Strain of muscle, fascia and tendon of other parts of biceps, right arm, initial encounter; I10 Essential (primary) hypertension; E66.9 Obesity, unspecified; Z68.30 Body mass index [BMI] 30.0-30.9, adult
CPT/HCPCS: 23410; 29828; A9270; C1713; J1170; J2372; J2795; J3370; J3490; J7120

== ENCOUNTER 2024-06-14 08:06 | Outpatient (CLI) | payer MEDICARE, OTHER ==
[2024-06-14 08:26] LABS: BASOPHILS % (AUTO) 0.6 %; EOSINOPHILS # (AUTO) 0.2 10^3/uL (0.0-0.7); EOSINOPHILS % (AUTO) 3.4 %; HCT - HEMATOCRIT 42.7 % (42.0-52.0); HGB - HEMOGLOBIN 14.2 g/dL (14.0-18.0); LYMPHOCYTES # (AUTO) 1.8 10^3/uL (1.5-3.5); LYMPHOCYTES % (AUTO) 28.6 %; MEAN CORPUSCULAR HEMOGLOBIN 30.9 pg (27.0-31.0); MEAN CORPUSCULAR HGB CONC 33.3 g/dL (32.0-36.0); MEAN CORPUSCULAR VOLUME 92.8 fL (80.0-94.0); MEAN PLATELET VOLUME 10.4 fL (7.4-11.4); MONOCYTES # (AUTO) 0.6 10^3/uL (0.0-1.0); MONOCYTES % (AUTO) 9.2 %; NEUTROPHILS # (AUTO) 3.6 10^3/uL (1.5-6.6); PLT - PLATELET COUNT 238 10^3/uL (130-450); RED CELL DISTRIBUTION WIDTH 13.1 % (12.0-15.0); WHITE BLOOD COUNT 6.2 x10^3/uL (4.8-10.8)
[2024-06-14 08:37] LABS: ALBUMIN 4.6 g/dL (3.2-5.5); ALBUMIN/GLOBULIN RATIO 1.8 (1.0-2.2); ALKALINE PHOSPHATASE 55 IU/L (42-121); ALT ALANINE AMINOTRANSFERASE 44 IU/L (10-60); AST ASPARTATE AMINOTRANSFERASE 30 IU/L (10-42); BILIRUBIN,TOTAL 0.7 mg/dL (0.2-1.0); BUN - BLOOD UREA NITROGEN 16 mg/dL (6-20); CALCIUM 9.8 mg/dL (8.5-10.3); CARBON DIOXIDE - CO2 30 mmol/L (21-32); CHLORIDE 106 mmol/L (101-111); CHOL/HDL RATIO 4.2 (<5.0); CHOLESTEROL 167 mg/dL; CREATININE 0.8 mg/dL (0.6-1.3); GFR - MDRD 96 (>89); GLUCOSE 102 mg/dL (74-104); HDL CHOLESTEROL 40 mg/dL; LDL CHOLESTEROL,CALCULATED 106 mg/dL; LDL/HDL RATIO 2.7 (<3.6); POTASSIUM 3.8 mmol/L (3.5-4.5); SODIUM 140 mmol/L (135-145); TOTAL PROTEIN 7.2 g/dL (6.4-8.9); TRIGLYCERIDES 105 mg/dL; VLDL CHOLESTEROL 21 mg/dL
[2024-06-14 14:30] LABS: ESTIMATED AVERAGE GLUCOSE 117 mg/dL (70-100); HEMOGLOBIN A1c% 5.7 % (4.27-6.07)
== END 2024-06-14 08:07 | disposition home or self-care (01) ==
LOC: LAB 08:06
PROVIDERS: ATTEND Physician Assistant Medical
DX: I10 Essential (primary) hypertension (principal); E78.5 Hyperlipidemia, unspecified; R73.9 Hyperglycemia, unspecified; Z12.5 Encounter for screening for malignant neoplasm of prostate
CPT/HCPCS: 36415; 80053; 80061; 83036; 85025; G0103; 83721; 84153